=== PATIENT | female | born 1970 | race Caucasian/White ===

== ENCOUNTER → 2020-01-22 | Outpatient (CLI) | payer OTHER | LOC: CAT 09:24 | DX: Z13.6 Encounter for screening for cardiovascular disorders (principal); E78.00 Pure hypercholesterolemia, unspecified; I25.10 Atherosclerotic heart disease of native coronary artery without angina pectoris ==

== ENCOUNTER → 2020-08-09 | Outpatient (CLI) | payer OTHER | LOC: LAB 09:11 | PROVIDERS: ATTEND Nurse Practitioner | DX: Z20.828 Contact with and (suspected) exposure to other viral communicable diseases (principal) ==

== ENCOUNTER 2020-08-18 19:06 | Emergency (ER) | payer OTHER ==
[~2020-08-18] VITALS: Ht 170.2 cm; Wt 108.9 kg
[2020-08-18 19:10] VITALS: BP 158/93
[2020-08-18] MEDS ORDERED: LAMICTAL100 MG PO (19:15)
[2020-08-18] MEDS ORDERED: ABILIFY15 MG PO (20:52)
[2020-08-18] MEDS ORDERED: TRULICITY0.75 MG/0. (20:53)
[2020-08-18] MEDS ORDERED: LIPITOR80 MG PO (20:53)
[2020-08-18] MEDS ORDERED: JARDIANCE10 MG PO (20:53)
== END 2020-08-18 20:30 | disposition home or self-care (01) ==
LOC: ER 19:06
DX: S93.402A Sprain of unspecified ligament of left ankle, initial encounter (principal); Z88.0 Allergy status to penicillin; Z79.899 Other long term (current) drug therapy; X50.1XXA Overexertion from prolonged static or awkward postures, initial encounter; Y93.89 Activity, other specified; Y92.89 Other specified places as the place of occurrence of the external cause; Y99.8 Other external cause status

== ENCOUNTER 2020-08-25 04:10 | Emergency (ER) | payer OTHER ==
[~2020-08-25] VITALS: Ht 170.2 cm; Wt 112.0 kg
[~2020-08-25 04:10] MED LIST: ABILIFY15 MG PO; JARDIANCE10 MG PO; LAMICTAL100 MG PO; LIPITOR80 MG PO; TRULICITY0.75 MG/0.
[2020-08-25] MEDS ORDERED: LANTUS SUBQ (04:15)
[2020-08-25] MEDS ORDERED: FLEXERIL PO (04:58)
[2020-08-25] MEDS ORDERED: MEDROLDOSEPACK PO (04:58)
[2020-08-25] MEDS ORDERED: NAPROSYN500 MG PO (04:58)
[2020-08-25 05:08] VITALS: BP 180/93
== END 2020-08-25 05:10 | disposition home or self-care (01) ==
LOC: ER 04:10
DX: M54.5 Low back pain (principal); M62.830 Muscle spasm of back; E11.9 Type 2 diabetes mellitus without complications; I10 Essential (primary) hypertension; Z98.890 Other specified postprocedural states; Z79.899 Other long term (current) drug therapy; Z79.4 Long term (current) use of insulin; Z88.0 Allergy status to penicillin

== ENCOUNTER → 2020-08-29 | Outpatient (CLI) | payer OTHER ==
[~2020-08-29] MED LIST changes: +FLEXERIL PO; +LANTUS SUBQ; +LORAZEPAM 0.50.5 MG PO; +MEDROLDOSEPACK PO; +MIRTAZAPINE7.5 MG PO; +NAPROSYN500 M1 PO; +NAPROSYN500 MG PO; -TRULICITY0.75 MG/0.; +TRULICITY0.75 MG/0. SUBQ
== END ==
LOC: LAB 09:21
PROVIDERS: ATTEND Specialist
DX: Z01.812 Encounter for preprocedural laboratory examination (principal); Z20.828 Contact with and (suspected) exposure to other viral communicable diseases

== ENCOUNTER → 2020-08-30 | Outpatient (CLI) | payer OTHER ==
[~2020-08-30] VITALS: Ht 170.2 cm; Wt 111.1 kg
--- NOTE | ~2020-08-30 | P ---
[facility] [place] [address] PROCEDURE REPORT Name: ELAN VELIZ Room #: REG Tim Castillo#: [id number] Admission: 08/30/20 Attend Phys: Dustin Russell Discharge: Date of : 66 Report #: [id number] THIS REPORT FOR: cc: Som Kate MD, Neal A. MD McElhinney, Christian C. MD ~ CC: Dustin Yeung MD DATE OF SERVICE: 08/30/2020 PROCEDURE PERFORMED: Upper endoscopy. HISTORY OF PRESENT ILLNESS: The patient is a 50-year-old female with a history of obesity, who is preparing for gastric bypass surgery. She denies any heartburn, no dysphagia, no nausea or vomiting. No previous history of upper endoscopy. Plan is for EGD prior to her surgery. DESCRIPTION OF PROCEDURE: The risks and benefits of the procedure were explained to the patient, those risks including but not limited to bleeding, perforation and the risk of sedation. She understood these risks and gave informed consent. Sedation was given using propofol per anesthesia. Next, using a standard Olympus upper endoscope, the scope was placed in the patient's mouth and advanced under direct vision through the esophagus, stomach and into the second portion of the duodenum. The larynx was normal in appearance. The upper and mid esophagus was normal. In the distal esophagus; however, there was a grade C erosive esophagitis. No evidence of Cleveland's. Overall, the gastric mucosa was normal. The pylorus was normal and patent. The duodenal bulb, first and second portion were all normal. The scope was then withdrawn and the procedure terminated. The patient tolerated the procedure well. IMPRESSION: 1. Grade C erosive esophagitis. 2. Otherwise, normal upper endoscopy. RECOMMENDATIONS: 1. Recommend long-term daily PPI therapy. 2. Okay to proceed with surgery. [address] [address] PROCEDURE REPORT Name: ELAN VELIZ [id number] Admission: 08/30/20 Attend Phys: Dustin Russell Discharge: Date of : 66 Report #: [id number] Thank you for allowing me to participate in her care. By: [id number] Dustin Reynolds MD /jade
== END | disposition home or self-care (01) ==
LOC: GI 07:10
PROVIDERS: ATTEND Specialist
DX: K22.10 Ulcer of esophagus without bleeding (principal); F41.9 Anxiety disorder, unspecified; F32.9 Major depressive disorder, single episode, unspecified; I10 Essential (primary) hypertension; G47.30 Sleep apnea, unspecified; E11.9 Type 2 diabetes mellitus without complications; E78.5 Hyperlipidemia, unspecified; Z79.899 Other long term (current) drug therapy; Z72.89 Other problems related to lifestyle; Z98.890 Other specified postprocedural states
CPT/HCPCS: 62110; 62900

== ENCOUNTER → 2020-10-11 | Outpatient (CLI) | payer OTHER | LOC: LAB 07:59 | PROVIDERS: ATTEND Surgery | DX: U07.1 COVID-19 (principal) ==

== ENCOUNTER 2020-10-16 11:19 | Inpatient (IN) | payer OTHER ==
[~2020-10-16] VITALS: Ht 170.2 cm; Wt 107.0 kg
--- NOTE | ~2020-10-16 | O ---
[facility] [place] [address] OPERATIVE REPORT Name: ELAN VELIZ Room #: 456-P [facility] IN M.R.#: [id number] Admission: 10/23/20 Attend Phys: Jase Yeung MD Discharge: Date of : 66 Report #: [id number] THIS REPORT FOR: cc: Som Kate MD, Neal A. MD Joseph, Sigi P. MD ~ DATE OF SERVICE: 10/23/2020 PREOPERATIVE DIAGNOSES: 1. Morbid obesity. 2. Type 2 diabetes. 3. Hyperlipidemia. 4. Hypertension. POSTOPERATIVE DIAGNOSES: 1. Morbid obesity. 2. Type 2 diabetes. 3. Hyperlipidemia. 4. Hypertension. OPERATIVE PROCEDURES DONE: 1. Laparoscopic Justyn-en-Y gastric bypass. 2. Upper GI endoscopy. OPERATING SURGEON: Jase Yeung MD INDICATIONS FOR THE PROCEDURE: The patient is a 50-year-old female who presented with features of morbid obesity. She was noted to have a weight of 110 kilograms with a BMI of 38. With the above listed comorbidities and severe type 2 diabetes, the patient was advised laparoscopic Justyn-en-Y gastric bypass and possible repair of hiatal hernia. The patient showed understanding and agreed to proceed. DESCRIPTION OF PROCEDURE: After explaining to the patient in detail and informed consent was obtained, the patient was identified in the preoperative holding area. The patient was transferred to the operating room and was placed in supine position. Sequential compressive devices were placed for DVT prophylaxis. Preoperative antibiotics were given. After induction of anesthesia, the abdomen was prepped and draped in a sterile fashion. Through a left upper quadrant 1 cm incision and using Optiview technique, peritoneal cavity was entered and pneumoperitoneum was created. Thereafter, under direct vision, another 5 mm trocar was placed in the left mid abdomen, another 12 mm trocar was placed in the right mid abdomen, another 5 mm trocar was placed in the right subcostal region and through a 1 cm incision in the epigastrium, a Analisa retractor was introduced and the left lobe of the liver was retracted. [address] [address] OPERATIVE REPORT Name: ELAN VELIZ Room #: 456-P [facility] IN M.R.#: [id number] Admission: 10/23/20 Attend Phys: Jase Yeung MD Discharge: Date of : 66 Report #: [id number] Upon initial inspection, I did not see any obvious features to suggest a hiatal hernia. I then divided the gastrohepatic omentum. I entered the lesser sac. I divided the small blood vessels and the fatty tissues along the lesser curve of the stomach and the junction of the proximal and middle third of the stomach using an Endo-IRMA white load stapler. I then divided the stomach transversely using an Endo-IRMA green load stapler with Nandini-Strips. I continued to create the pouch by dividing the stomach superiorly up to the angle of His to create the gastric pouch. Once this was completed, I then divided the greater omentum using EnSeal in the middle of the omentum. The transverse mesocolon was retracted. The small bowel was measured downstream for about 50 cm. An enterotomy was made at this point. Another gastrotomy was made with the gastric pouch posteriorly. A posterior gastrojejunostomy was then made. The common gastroenterotomy was closed in 2 layers using 2-0 V-Loc continuous sutures. I then divided the biliary limb just proximal to the anastomosis using an Endo-IRMA blue load stapler with Nandini-Strips. I measured the Justyn limb downstream for about 125 cm. An enterotomy was made at this point. Another enterotomy was made in the jejunum from the biliary limb and a ydyo-yl-clsz jejunojejunostomy was performed. The common enterotomy was then closed in layers using another Endo-IRMA blue load stapler with Nandini-Strips. The jejunojejunostomy defect was closed using 2-0 silk continuous sutures. I then clamped the Justyn limb using a bowel clamp. I then performed an upper GI endoscopy. The scope was introduced into the esophagus was gradually advanced into the gastric pouch, which appeared to be of adequate size. I was able to enter the Justyn limb without difficulty. An air leak test was performed by insufflation of the stomach and by irrigation of fluid along the staple line. There was no leak that was noted. Absolute hemostasis was ensured. The endoscope was then removed. Thorough saline irrigation of the abdomen was given. Approximately about 10 mL of lidocaine and Marcaine mix was instilled under the left hemidiaphragm. The 12 mm port site incision was closed with 0 Vicryl for the fascia. Skin was closed with 4-0 Monocryl for all the incisions. Dermabond was applied. The patient was stable at the end of the procedure. The patient was awoken from anesthesia and was transferred to the recovery room in stable condition. ESTIMATED BLOOD LOSS: Approximately 20 mL. CONDITION OF THE PATIENT: Stable. FLUIDS GIVEN: Per anesthesia notes. SPECIMEN SENT: None. COMPLICATIONS: None. [address] [address] OPERATIVE REPORT Name: ELAN VELIZ Room #: 456-P [facility] IN M.R.#: [id number] Admission: 10/23/20 Attend Phys: Jase Yeung MD Discharge: Date of : 66 Report #: [id number] ANESTHESIA: General anesthesia. By: [id number] Jase Yeung MD /nt
[2020-10-23 12:35] VITALS: BP 148/92
[2020-10-23 12:48] LABS: HEMATOCRIT 41.2 % (37.0-47.0); HEMOGLOBIN 13.7 gm/dL (12.0-15.0); MCH 26.5 pg (26.0-34.0); MCHC 33.2 g/dL (28.0-37.0); RBC 5.15 mil/uL (4.20-5.00); RDW 16.3 % (10.5-14.5); WBC 7.4 thou/uL (4.0-11.0)
[2020-10-23 12:57] LABS: CALCIUM 9.6 mg/dL (8.5-10.1); POTASSIUM 3.5 mmol/L (3.5-5.1)
[2020-10-23 13:03] LABS: ALBUMIN 4.2 g/dL (3.4-5.0); TOTAL BILIRUBIN 0.6 mg/dL (0.2-1.0); TOTAL PROTEIN 7.8 g/dL (6.4-8.2)
--- NOTE | 2020-10-23 18:36 | NUR ---
PATIENT ARRIVED ON THIS UNIT TO ROOM 440 1807 PT SLEEPING AT BEDSIDE. V.S 98.4 18 98 133/79 O2 SAT = 98% RA HEIGHT = 5'7'' WEIGHT = 236.0 PHARMACIST CRITICAL CARE CALLED PT WAS ENTERED [employer] TELE. OR NURSE ON UNIT AND CALLED DR SCHUSTER WHO WANTS HER, [employer] TELE, PATIENT MOVED TO [facility] ROOM 456 AT 1833. REPORT GIVEN TO [facility] NURSE. PT STABLE AT TRANSFER.
--- NOTE | 2020-10-23 20:55 | NUR ---
PATIENT ADMITTED FROM OR WITH LAP GASTRIC BYPASS, PATIENT HAS 5 LAP SITES, C/D/I. PATIENT C/O PAIN AND NAUSEA, CHACHO/RN GAVE MEDICATIONS FOR BOTH. PATIENT ALERT AND ORIENTED X 4. PATIENT HAS KNEE HIGH ILA HOSE AND SCD'S IN PLACE. PATIENT TRANSFERRED FROM [address] [place] [address] SCHUSTER, PATIENT NEEDS TELE. PATIENT ON ROOM AIR, NO C/O SOA. ADMISSION COMPLETED, REPORT GIVEN TO CAMPBELL/ASHA.
[2020-10-24 05:25] VITALS: BP 161/90
[2020-10-24 07:35] VITALS: BP 154/99
--- NOTE | 2020-10-24 07:53 | NUR ---
VSS-AFEBRILE. LUNGS CLEAR-ROOM AIR. C/O SIGNIFICANT ABDOMINAL PAIN AND NAUSEA OVERNIGHT, IV MEDICATIONS PROVIDED LITTLE RELIEF. PHYSICIAN PAGED, NEW ORDERS TAKEN AND IMPLEMENTED. ABDOMINAL INCISIONS INTACT WITH SURGICAL GLUE, NO DRAINAGE. KEPT NPO, WILL START CLEAR LIQUIDS THIS MORNING. OOB MULTIPLE TIMES TO AMBULATE THROUGH NIGHT. FALL PRECAUTIONS IN PLACE.
--- NOTE | 2020-10-24 10:21 | NUR ---
ORDERS FOR AMBULATION. SPOKE WITH Pt WHO STATES SHE HAS ALREADY BEEN AMBULATING IN THE HALLS AND FEELS STEADY ON HER FEET. Pt DECLINING FORMAL P.T. EVAL AND STATES SHE WILL CONTINUE TO WALK ON HER OWN
--- NOTE | 2020-10-24 10:40 | NUR ---
PT A&OX4, VSS, PAIN IN ABDOMEN. PATIENT UP AND WALKING. LAP SITES ON ABDOMEN C/D/I SECURED WITH DERMABOND. NEW SCAPOLAMINE PATCH PLACED. IV PATENT LEFT FA. NO SIGNS OF DISTRESS. WILL CONTINUE TO MONITOR.
[2020-10-24 14:42] VITALS: BP 159/95
--- NOTE | 2020-10-25 06:33 | NUR ---
VSS-AFEBRILE. LUNGS CLEAR-ROOM AIR. OOB WITH SBA TO AMBULATE AND USE RESTROOM. ENCOURAGED TO AMBULATE MORE FREQUENTLY, WALKED TWICE DURING SENIOR CONSTRUCTION MANAGER. ABDOMINAL INCISIONS DRY AND INTACT AND ARE OPEN TO AIR. TOLERATING PO FLUIDS WITH MINIMAL NAUSEA. PAIN WELL CONTROLLED WITH IV PAIN MEDICATION. CALLS APPROPRIATELY FOR ANY NEEDED ASSISTANCE.
[2020-10-25 11:00] VITALS: BP 167/98
--- NOTE | 2020-10-25 18:12 | NUR ---
ASSUMED CARE OF PATIENT AFTER REPORT. ASSESSMENT CHARTED. MEDICATIONS ADMISTERED PER EMAR. BP ELEVATED; PT STATES THIS IS NEW. PROVIDER NOTIFIED. PROVIDER ALSO NOTIFIED OF NAUSEA WITH STAGE 1 GASTRIC SLEEVE DIET. PRN ANTIEMETIC ADMINISTERED. PATIENT IS A&OX4 AND MAKES NEEDS KNOWN. C/O PAIN RELEIEVED BY NORCO SYRUP. BOWEL SOUNDS ARE ACTIVE BUT PATIENT STATES SHE IS WORRIED ABOUT GETTING CONSTIPATED. PATIENT IS AMBULATING AROUND UNIT AND TOLERATING WELL. IS UP INDEPENDENTLY W NO ISSUES. WILL CONTINUE TO MONITOR AND ENDORSE TO NOC. RN.
[2020-10-25 19:39] VITALS: BP 149/87
[2020-10-26 07:31] VITALS: BP 144/86
[2020-10-26 10:21] VITALS: BP 144/86
--- NOTE | 2020-10-26 11:05 | NUR ---
Received awake on bed. Due medications given as prescribed, able to swallow meds w/o difficulty. On room air. Vital signs stable. On telemetry; no complains and signs of chest pain, crushing sensation and heaviness. On gastric bypass diet- tolerating well; no nausea, no vomiting and no abdominal pain noted. With 5 lap sites at abdomen with dermabond; C/D/I- no signs of bleeding and infection noted. Up ad carlitos, ambutaing in the hallway with mask. Continent of bowel and bladder. With IV at R hand, IVF running at 125cc/hr, infusing well. Visited by today- update given. Complained of pain, due PRN pain meds given as prescribed. Pt seen and examined by Dr Drake today; discharge orders made by Dr Yeung- pt updated. Pt said that she had her prescription refilled at [facility] outpatient pharmacy yesterday and unable to pick them up, they're closed over the weekend and no access to any of her pain meds- Dr Drake informed, written a prescription for the patient. Discharge instructions, follow up schedule, prescription given and instructed. Telemetry discontinued, monitor returned.
== END 2020-10-26 12:19 | disposition home or self-care (01) | DRG 621 ==
LOC: PRE 11:19 → TBA 10-23 11:50 → PRE 10-23 13:39 → 4S 10-23 17:47 → 4W 10-23 18:23
PROVIDERS: ADMIT Surgery; ATTEND Surgery
PROC: 0DJ08ZZ Inspection of Upper Intestinal Tract, Via Natural or Artificial Opening Endoscopic (ICD-10-PCS; principal; 2020-10-23)
PROC: 0D164ZA Bypass Stomach to Jejunum, Percutaneous Endoscopic Approach (ICD-10-PCS; principal; 2020-10-23)
DX: E66.01 Morbid (severe) obesity due to excess calories (principal); E11.9 Type 2 diabetes mellitus without complications; E78.5 Hyperlipidemia, unspecified; I10 Essential (primary) hypertension; Z68.37 Body mass index [BMI] 37.0-37.9, adult; Z88.0 Allergy status to penicillin; Z88.5 Allergy status to narcotic agent
CPT/HCPCS: 10045; 10047; 50010; 50101; 50386; 50555; 50558; 50739; 50740; 51489; 52265; 52266; 53307; 54022; 54118; 56462; 56525; 56526; 57092; 62110; 62900; 70005

== ENCOUNTER 2020-11-02 15:17 | Inpatient (IN) | payer OTHER ==
[~2020-11-02] VITALS: Ht 170.2 cm; Wt 103.0 kg
[2020-11-02 15:21] VITALS: BP 163/87
[2020-11-02 16:07] LABS: URINE BILIRUBIN NEGATIVE (Negative); URINE BLOOD NEGATIVE (Negative); URINE CLARITY CLEAR; URINE COLOR YELLOW; URINE GLUCOSE-RANDOM* TRACE (Negative); URINE KETONES 3+ (Negative); URINE LEUKOCYTES-REFLEX NEGATIVE (Negative); URINE NITRITE-REFLEX NEGATIVE (Negative); URINE PROTEIN (DIPSTICK) TRACE (Negative); URINE UROBILINOGEN 0.2 E.U./dl (0.2-1.0)
[2020-11-02 16:09] LABS: ABSOLUTE NEUTROPHILS 3.7 thou/uL (1.4-8.2); BASOPHILS 0.4 % (0.0-2.0); EOSINOPHILS 1.7 % (0.0-3.0); HEMATOCRIT 40.8 % (37.0-47.0); HEMOGLOBIN 13.5 gm/dL (12.0-15.0); LYMPHOCYTES 21.9 % (24.0-44.0); MCHC 33.2 g/dL (28.0-37.0); MCV 78.5 fL (80.0-100.0); MONOCYTES 12.5 % (1.0-8.0); PLATELET COUNT 379 thou/uL (150-400); POLYS 63.5 % (36.0-66.0); RDW 16.1 % (10.5-14.5); WBC 5.9 thou/uL (4.0-11.0)
[2020-11-02 16:12] LABS: CALCIUM 9.6 mg/dL (8.5-10.1); CREATININE 0.9 mg/dL (0.6-1.0); POTASSIUM 3.3 mmol/L (3.5-5.1)
[2020-11-02 16:18] LABS: ALBUMIN 3.7 g/dL (3.4-5.0); DIRECT BILIRUBIN 0.2 mg/dL (<0.1-0.2); TOTAL BILIRUBIN 0.7 mg/dL (0.2-1.0); TOTAL PROTEIN 7.5 g/dL (6.4-8.2)
[2020-11-02 19:38] VITALS: BP 145/81
[2020-11-02 21:00] VITALS: BP 153/92
[2020-11-03 03:55] VITALS: BP 134/85
--- NOTE | 2020-11-03 07:46 | NUR ---
VSS-AFEBRILE. ALERT AND ORIENTED X 4, LUNGS CLEAR-ROOM AIR. NPO PER DR PADGETT. NO C/O NAUSEA OR VOMITINF. SURGICAL INCISIONS ON ABDOMEN ARE SCABBED AND WITHOUT S/S OF INFECTION. OOB AD SYDNEY-STEADY ON FEET. SPORADIC C/ O ABDOMINAL PAIN. REPORTED BM THIS SHIFT, SOFT AND FORMED. CALLS APPROPRIATELY FOR ANY NEEDED ASSISTANCE.
[2020-11-03 08:14] VITALS: BP 149/83
--- NOTE | 2020-11-03 17:35 | NUR ---
PT A&OX4, VSS, PAIN IN ABDOMEN. PATIENT C/O OF NAUSEA MEDICATION GIVEN. PATIENT ROUNDED ON CONSTANTLY. PATIENT TOLERATING CLEAR LIQUID DIET. NO VOMITING. NO SIGNS OF DISTRESS. WILL CONTINUE TO MONITOR.
--- NOTE | 2020-11-04 06:23 | NUR ---
VSS-AFEBRILE. REMAINS ON ROOM AIR. C/O SPORADIC ABDOMINAL PAIN, WELL RELIEVED WITH IV PAIN MEDICATION. TOLERATING ORAL FLUIDS WITH ONLY ONE EPISODE OF NAUSEA. CALLS APPROPRIATELY FOR ANY NEEDED ASSISTANCE.
--- NOTE | 2020-11-04 12:38 | NUR ---
PT A&OX4, VSS, PAIN IN ABDOMEN. GAVE ZONFRAN BEFORE BREAKFAST, PROPHYLACTICLY. TOLERATED BREAKFAST, NO VOMITING. HAS BEED ADVANCED TO FULL LIQUIDS. NO SIGNS OF DISTRESS. WILL CONTINUE TO MONITOR.
[2020-11-04 13:01] VITALS: BP 149/83
== END 2020-11-04 15:22 | disposition home or self-care (01) | DRG 394 ==
LOC: ER 15:17 → EROBS 18:44 → 4W 18:44
PROVIDERS: Emergency Medicine; ADMIT Surgery; ATTEND Surgery
DX: K95.89 Other complications of other bariatric procedure (principal); K91.30 Postprocedural intestinal obstruction, unspecified as to partial versus complete; G47.30 Sleep apnea, unspecified; E78.5 Hyperlipidemia, unspecified; F41.9 Anxiety disorder, unspecified; F31.9 Bipolar disorder, unspecified; E11.9 Type 2 diabetes mellitus without complications; Y83.8 Other surgical procedures as the cause of abnormal reaction of the patient, or of later complication, without mention of misadventure at the time of the procedure; Y82.8 Other medical devices associated with adverse incidents; Y92.89 Other specified places as the place of occurrence of the external cause; Z98.891 History of uterine scar from previous surgery; Z79.4 Long term (current) use of insulin; Z79.899 Other long term (current) drug therapy; Z88.0 Allergy status to penicillin; Z88.5 Allergy status to narcotic agent
CPT/HCPCS: 10040